=== PATIENT | male | born 1995 | race Caucasian/White ===

== ENCOUNTER 2019-06-13 11:48 | Emergency (ER) | payer SELFPAY ==
[~2019-06-13] VITALS: Ht 180.3 cm; Wt 72.6 kg
[2019-06-13] MEDS ORDERED: ONDANSETRON 4 MG TAB.RAPDIS ONE ×2 (12:23→13:23)
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
[2019-06-13] MEDS ORDERED: ONDANSETRON 4 MG TAB.RAPDIS SL ONE ×2 (12:30→13:30)
--- NOTE | 2019-06-13 13:59 | NUR ---
Patient ambulatory with a steady gait. Received instructions from Shivam GUSTAFSON. Did not wait for paperwork and prescription, Talia guadalupe.
[2019-06-13 14:01] VITALS: BP 139/70
== END 2019-06-13 14:01 | disposition home or self-care (01) ==
LOC: ER 11:48
DX: S00.03XA Contusion of scalp, initial encounter (principal); Y04.0XXA Assault by unarmed brawl or fight, initial encounter; Y93.89 Activity, other specified; Y92.89 Other specified places as the place of occurrence of the external cause; Y99.8 Other external cause status
CPT/HCPCS: 70450; 99284; Q0162 ×2